=== PATIENT | female | born 1945 | race Caucasian/White ===

== ENCOUNTER 2023-09-12 14:14 | Emergency (ER) | payer MEDICARE ==
[~2023-09-12] VITALS: Ht 167.6 cm; Wt 51.3 kg
[2023-09-12 14:28] VITALS: TEMP 98.3
[2023-09-12] MEDS ORDERED: ONDANSETRON 4 MG TAB.RAPDIS ONE (14:49)
[2023-09-12] MEDS: ONDANSETRON 4 MG TAB.RAPDIS SL ONE (14:51)
[2023-09-12] MEDS ORDERED: ONDA4TAB11 PO (16:25)
[2023-09-12 16:41] VITALS: BP 132/84; O2SAT 99
== END 2023-09-12 16:41 | disposition home or self-care (01) ==
LOC: ER 14:33
DX: R11.0 Nausea (principal); R00.1 Bradycardia, unspecified; F03.90 Unspecified dementia, unspecified severity, without behavioral disturbance, psychotic disturbance, mood disturbance, and anxiety
CPT/HCPCS: 99283; 93005; Q0162

== ENCOUNTER 2024-01-28 01:03 | Inpatient (IN) | payer MEDICARE, OTHER ==
[~2024-01-28] VITALS: Ht 170.2 cm; Wt 45.0 kg
[~2024-01-28 01:03] MED LIST: ONDA4TAB11 PO
[2024-01-28 01:44] LABS: BASOPHILS # (AUTO) 0.1 K/uL (0.0-0.2); BASOPHILS % (AUTO) 0.4 % (0.0-2.0); EOSINOPHILS % (AUTO) 0.2 % (0.0-6.0); HEMATOCRIT 39 % (33-45); HEMOGLOBIN 12.9 g/dL (11.5-14.8); LYMPHOCYTES # (AUTO) 2.2 K/uL (0.8-4.8); LYMPHOCYTES % (AUTO) 14.9 % (20.0-44.0); MEAN CORPUSCULAR HEMOGLOBIN 32 PG (26.0-33.0); MEAN CORPUSCULAR HGB CONC 33 g/dl (31.0-36.0); MEAN CORPUSCULAR VOLUME 95 fL (82-100); MONOCYTES # (AUTO) 1.3 K/uL (0.1-1.30); MONOCYTES % (AUTO) 8.9 % (2.0-12.0); NEUTROPHILS # (AUTO) 11.3 K/uL (1.8-8.9); NEUTROPHILS % (AUTO) 75.6 % (43.0-81.0); PLATELET COUNT (AUTO) 288 K/uL (150-450); RED BLOOD CELL COUNT(AUTO) 4.08 MIL/uL (4.0-5.2); RED CELL DISTRIBUTION WIDTH 13.7 % (11.5-15.0)
[2024-01-28] MEDS: IV NS 0.9% 500 ML BAG IV ONE (01:51)
[2024-01-28 01:52] LABS: CALCIUM, SERUM 8.5 mg/dL (8.5-10.1); CARBON DIOXIDE 33 mmol/L (21-32); CHLORIDE 97 mmol/L (98-107); CREATININE 1.1 mg/dL (0.6-1.3); GLUCOSE 124 mg/dL (74-106); SODIUM SERUM 137 mmol/L (136-145); UREA NITROGEN, BLOOD 17 mg/dL (7-18)
[2024-01-28 02:00] LABS: LACTIC ACID 1.8 mmol/L (0.4-2.0)
[2024-01-28 02:06] LABS: ALANINE AMINOTRANSFERASE 33 U/L (12-78); ALBUMIN 2.4 g/dL (3.4-5.0); ALCOHOL, BLOOD < 3 mg/dL (0-10); ALKALINE PHOSPHATASE 37 U/L (46-116); ASPARTATE AMINOTRANSFERASE 33 U/L (15-37); BILIRUBIN,DIRECT 0.2 mg/dL (0.0-0.2); BILIRUBIN,TOTAL 0.5 mg/dL (0.2-1.0); TOTAL PROTEIN, SERUM 5.9 g/dL (6.4-8.2)
[2024-01-28 02:08] LABS: INR 0.96 (0.91-1.10); PROTHROMBIN TIME 10.2 SECS (9.2-11.1)
[2024-01-28 02:12] LABS: ACETAMINOPHEN < 2 ug/ml (10-30); SALICYLATE 2.5 mg/dL (2.8-20.0)
[2024-01-28 02:25] LABS: APPEARANCE,URINE CLEAR (CLEAR); BILIRUBIN,URINE NEGATIVE (NEGATIVE); BLOOD, URINE NEGATIVE Ery/uL (NEGATIVE); COLOR,URINE YELLOW (YELLOW); KETONES,URINE NEGATIVE (NEGATIVE); LEUKOCYTE ESTERASE ,URINE NEGATIVE (NEGATIVE); NITRITE, URINE NEGATIVE (NEGATIVE); PROTEIN,URINE NEGATIVE (NEGATIVE); UGLUCOSE NEGATIVE (NEGATIVE); UROBILINOGEN,URINE 0.2 EU/dL (0.2)
[2024-01-28 02:35] LABS: AMPHETAMINE, URINE NEGATIVE (NEGATIVE); BARBITURATE, URINE NEGATIVE (NEGATIVE); BENZODIAZEPINE, URINE NEGATIVE (NEGATIVE); CANNABINOID, URINE NEGATIVE (NEGATIVE); COCCAINE, URINE NEGATIVE (NEGATIVE); OPIATE, URINE NEGATIVE (NEGATIVE); PHENCYCLIDINE SCREEN,URINE NEGATIVE (NEGATIVE)
[2024-01-28] MEDS ORDERED: Z GUARD REMEDY 4 OZ OINT TP PRN (03:30)
[2024-01-28] MEDS ORDERED: ONDANSETRON HCL/PF 4 MG/2 ML VIAL IVP PRN (03:30)
[2024-01-28] MEDS ORDERED: HYDROCODONE/APAP 5/325MG TABLET PO PRN (03:30)
[2024-01-28] MEDS ORDERED: MAGNESIUM HYDROXIDE 30 ML UDC PO PRN (03:30)
[2024-01-28] MEDS ORDERED: MAG HYDROX/AL HYDROX/SIMETH 30 ML UDC PO PRN (03:30)
[2024-01-28 08:00] VITALS: BP 118/91; TEMP 97.3; O2SAT 97
[2024-01-28] MEDS: PANTOPRAZOLE 40 MG VIAL IV SCH (08:37)
[2024-01-28] MEDS ORDERED: IBUP-1957 PO (09:01)
[2024-01-28] MEDS ORDERED: DONE10TA44 PO (09:01)
[2024-01-28] MEDS ORDERED: PROP20TA19 PO (09:01)
[2024-01-28] MEDS: POTASSIUM CHLORIDE 20 MEQ TAB.PRT.SR PO SCH (11:25)
[2024-01-28 12:00] VITALS: BP 115/89; TEMP 97.4; O2SAT 98
[2024-01-28 14:31] LABS: THYROID STIMULATING HORMONE 2.18 uIU/mL (0.358-3.74)
[2024-01-28 16:00] VITALS: BP 122/88; TEMP 98.2; O2SAT 97
[2024-01-28] MEDS: ENSURE ENLIVE 237 ML LIQUID (VANILLA) PO SCH (16:40)
[2024-01-28 20:00] VITALS: BP 110/78; TEMP 98.2; O2SAT 97
[2024-01-29] VITALS: BP 132/85; TEMP 98.5; O2SAT 97
[2024-01-29 04:00] VITALS: BP 128/79; TEMP 97.5; O2SAT 97
[2024-01-29 06:38] LABS: BASOPHILS % (AUTO) 0.4 % (0.0-2.0); EOSINOPHILS % (AUTO) 0.1 % (0.0-6.0); HEMATOCRIT 36 % (33-45); HEMOGLOBIN 11.9 g/dL (11.5-14.8); LYMPHOCYTES # (AUTO) 2.5 K/uL (0.8-4.8); LYMPHOCYTES % (AUTO) 19.2 % (20.0-44.0); MEAN CORPUSCULAR HEMOGLOBIN 31 PG (26.0-33.0); MEAN CORPUSCULAR HGB CONC 33 g/dl (31.0-36.0); MEAN CORPUSCULAR VOLUME 95 fL (82-100); MONOCYTES # (AUTO) 1.2 K/uL (0.1-1.30); MONOCYTES % (AUTO) 9.3 % (2.0-12.0); NEUTROPHILS # (AUTO) 9.1 K/uL (1.8-8.9); PLATELET COUNT (AUTO) 291 K/uL (150-450); RED BLOOD CELL COUNT(AUTO) 3.78 MIL/uL (4.0-5.2); RED CELL DISTRIBUTION WIDTH 13.4 % (11.5-15.0); WHITE BLOOD COUNT (AUTO) 12.8 K/uL (4.3-11.0)
[2024-01-29 06:54] LABS: CALCIUM, SERUM 8.7 mg/dL (8.5-10.1); CARBON DIOXIDE 30 mmol/L (21-32); CHLORIDE 106 mmol/L (98-107); GLUCOSE 82 mg/dL (74-106); MAGNESIUM 1.7 mg/dL (1.8-2.4); PHOSPHORUS 2.3 mg/dL (2.5-4.9); POTASSIUM 3.9 mmol/L (3.5-5.1); SODIUM SERUM 142 mmol/L (136-145); UREA NITROGEN, BLOOD 9 mg/dL (7-18)
[2024-01-29 07:09] LABS: CHOLESTEROL 158 mg/dL (<200); HDL CHOLESTEROL 57 mg/dL (40-60); LDL 90 mg/dL (0-99); TRIGLYCERIDES 63 mg/dL (30-150)
[2024-01-29 08:00] VITALS: BP 104/88; TEMP 98.2; O2SAT 91
[2024-01-29] MEDS: DONEPEZIL 5 MG TABLET PO SCH (09:43)
[2024-01-29] MEDS: PANTOPRAZOLE 40 MG TABLET.DR PO SCH (09:43)
[2024-01-29] MEDS: PROPRANOLOL HCL 10 MG TABLET PO SCH (09:44)
[2024-01-29] MEDS: MAGNESIUM OXIDE 400 MG TABLET PO ONE (11:45)
[2024-01-29 16:00] VITALS: BP 94/55; TEMP 98.4; O2SAT 90
[2024-01-29] MEDS: K PHOS NEUTRAL 250 MG TABLET PO ONE (16:35)
[2024-01-29 21:00] VITALS: BP 90/73; TEMP 97.3; O2SAT 90
[2024-01-30 05:00] VITALS: BP 106/78; TEMP 98.9; O2SAT 96
[2024-01-30 06:28] LABS: CALCIUM, SERUM 8.2 mg/dL (8.5-10.1); CARBON DIOXIDE 28 mmol/L (21-32); CHLORIDE 102 mmol/L (98-107); CREATININE 0.9 mg/dL (0.6-1.3); GLUCOSE 117 mg/dL (74-106); MAGNESIUM 1.8 mg/dL (1.8-2.4); POTASSIUM 3.8 mmol/L (3.5-5.1); SODIUM SERUM 139 mmol/L (136-145); UREA NITROGEN, BLOOD 12 mg/dL (7-18)
[2024-01-30 13:00] VITALS: BP 130/72; TEMP 97.6; O2SAT 94
[2024-01-30] MEDS: K PHOS NEUTRAL 250 MG TABLET PO ONE (15:39)
[2024-01-30 20:55] VITALS: BP 114/97; TEMP 98.2; O2SAT 96
[2024-01-31 04:30] VITALS: BP 149/102; TEMP 98.4; O2SAT 97
[2024-01-31] MEDS: ACETAMINOPHEN 325 MG TABLET PO PRN (04:52)
[2024-01-31 06:43] LABS: CALCIUM, SERUM 8.3 mg/dL (8.5-10.1); CARBON DIOXIDE 27 mmol/L (21-32); CHLORIDE 101 mmol/L (98-107); CREATININE 0.9 mg/dL (0.6-1.3); GLUCOSE 113 mg/dL (74-106); PHOSPHORUS 2.6 mg/dL (2.5-4.9); POTASSIUM 3.7 mmol/L (3.5-5.1); SODIUM SERUM 137 mmol/L (136-145); UREA NITROGEN, BLOOD 15 mg/dL (7-18)
[2024-01-31 08:00] VITALS: BP 111/84; TEMP 97.9; O2SAT 97
[2024-01-31 08:17] VITALS: BP 111/84
== END 2024-01-31 13:28 | DRG 65 ==
LOC: ER 01:14 → TELE1 03:44 → MEDSG1 01-29 10:22
PROVIDERS: ADMIT Internal Medicine; ATTEND Internal Medicine
DX: I62.00 Nontraumatic subdural hemorrhage, unspecified (principal); E44.0 Moderate protein-calorie malnutrition; Z68.1 Body mass index [BMI] 19.9 or less, adult; G93.49 Other encephalopathy; R62.7 Adult failure to thrive; E87.6 Hypokalemia; E88.09 Other disorders of plasma-protein metabolism, not elsewhere classified; F03.90 Unspecified dementia, unspecified severity, without behavioral disturbance, psychotic disturbance, mood disturbance, and anxiety; D72.829 Elevated white blood cell count, unspecified
CPT/HCPCS: 36415; 70450-TC; 71045-TC; 80048-TC; 80061-TC; 80076-TC; 83605-TC; 83735-TC; 84100-TC; 84439-TC; 84443-TC; 85025-TC; 85730-TC; 87040-TC; 92526; 92611-TC; 97110-TC; 97116-TC; 97530-TC; G0378; G0480; J2470